=== PATIENT | male | born 1965 | race Caucasian/White ===

== ENCOUNTER 2017-12-11 09:31 | Day surgery (SDC) | payer BC, OTHER ==
[2017-12-09 09:55] VITALS: BMI 28.1
[~2017-12-11 09:31] MED LIST: LACTATED RINGERS 1,000 ML IV SCH
[2017-12-11 11:07] VITALS: RESP 16; TEMP 97.8
[2017-12-11] MEDS ORDERED: LIDOCAINE 1% 20 ML VIAL (10MG/ML) FOR IV START INTRADERMA ONE (11:08)
[2017-12-11] MEDS ORDERED: PROPOFOL 10 MG/ML 20 ML VIAL IV ONE (11:46)
--- NOTE | 2017-12-11 12:04 | P.PCN ---
Date of Procedure: 12/11/17 Procedure(s) Performed: BRIEF HISTORY: Patient is a 52-year-old pleasant male, scheduled for an elective colonoscopy as a part of screening for colorectal neoplasia. PROCEDURE PERFORMED: Colonoscopy. PREOPERATIVE DIAGNOSIS: Screening for colon cancer. IV sedation per Anesthesia. PROCEDURE: After informed consent was obtained, the patient, was brought into the endoscopy unit. IV sedation was administered by Anesthesia under continuous monitoring. Digital rectal examination was normal. Initially the Olympus CF- 160 flexible video colonoscope was then inserted in the rectum, gradually advanced into the cecum without any difficulty. Careful examination was performed as the scope was gradually being withdrawn. Ileocecal valve and the appendiceal orifice were visualized and appeared normal. Prep was fair.. Mucosa of the cecum, ascending colon, transverse colon, descending colon, sigmoid colon, and rectum appeared normal. Retroflexion was performed in the rectum and no lesions were seen. The patient tolerated the procedure well. IMPRESSION: Normal-appearing colon from rectum to cecum with no evidence of colorectal neoplasia. RECOMMENDATIONS: Findings of this examination were discussed with the patient as well as his family. He was advised to have a repeat screening colonoscopy in 10 years.
[2017-12-11 12:40] VITALS: BP 147/90; PULSE 83
== END 2017-12-11 13:33 | disposition home or self-care (01) ==
LOC: ORWHC2ENDO 09:31
PROVIDERS: ATTEND Internal Medicine Gastroenterology
DX: Z12.11 Encounter for screening for malignant neoplasm of colon (principal); Z91.040 Latex allergy status; Z91.09 Other allergy status, other than to drugs and biological substances; Z79.899 Other long term (current) drug therapy
CPT/HCPCS: G0121; J2704

== ENCOUNTER 2019-02-08 15:53 | Emergency (ER) | payer OTHER ==
[2019-02-08 16:04] VITALS: RESP 18
--- NOTE | 2019-02-08 17:02 | ED ---
Lower Extremity Injury HPI - General Chief Complaint: Extremity Injury, Lower Stated Complaint: Foot injury/pain Time Seen by Provider: 02/08/19 16:14 Source: patient Mode of arrival: ambulatory Limitations: no limitations - History of Present Illness Initial Comments: Patient is a 53-year-old male complaining of left foot pain 5 days. Patient states he was working when a large gas barrell was rolling towards him so he rolled out of the way when his foot was in a rut and it twisted. Patient states he has been having pain on the bottom of his left foot and up his Achilles since the injury. Patient states he feels like he has standing on a marble. Patient states he has pain when he is weightbearing and also on is nonweightbearing. Patient states he recently fractured his fourth toe on that same foot after approximately 3 weeks ago. Patient states that has been feeling fine until this injury. Patient denies any other previous injuries or surgeries to the left foot. Patient has no other complaints at this time. Upon arrival to ER, vital signs stable. - Related Data Home Medications Medication Instructions Recorded Confirmed Acetaminophen [Tylenol] 500 mg PO Q4-6H PRN 02/08/19 02/08/19 Fexofenadine/Pseudoephedrine 1 tab PO DAILY PRN 02/08/19 02/08/19 [Florecita-D 24 Hour Tablet] Allergies Allergy/AdvReac Type Severity Reaction Status Date / Time Latex, Natural Rubber Allergy Rash/Hives Verified 02/08/19 16:12 dust Allergy Wheezing Uncoded 02/08/19 16:04 Review of Systems ROS Statement: Those systems with pertinent positive or pertinent negative responses have been documented in the HPI. ROS Other: All systems not noted in ROS Statement are negative. Past Medical History Additional Past Medical History / Comment(s): Ankylosing spondylitis heart murmur, HX Testicular torsion. History of Any Multi-Drug Resistant Organisms: None Reported Past Surgical History: Appendectomy Additional Past Surgical History / Comment(s): Torn R sided abdominal "apron" with surgical repair. Past Anesthesia/Blood Transfusion Reactions: No Reported Reaction Past Psychological History: No Psychological Hx Reported Smoking Status: Never smoker Past Alcohol Use History: None Reported Past Drug Use History: None Reported - Past Family History Father Family Medical History: Coronary Artery Disease (CAD), Myocardial Infarction (MT) Additional Family Medical History / Comment(s): Father has schizophrenia, he had a MT at the age of 48yrs and CABG-4 vessels. Mother Family Medical History: Cancer Additional Family Medical History / Comment(s): Mother had lymphoma and breast cancer. She at the age of 40yrs. Brother(s) Family Medical History: Coronary Artery Disease (CAD) Additional Family Medical History / Comment(s): Pt has two brothers with CAD. One brother at age 49yrs had CABG-6 vessels and another brother who at age 30 yrs was diagnosed with CAD. General Exam - General Exam Comments Initial Comments: GENERAL: Well-appearing, well-nourished and in no acute distress. HEAD: Atraumatic, normocephalic. EYES: Pupils equal round and reactive to light, extraocular movements intact, sclera anicteric, conjunctiva are normal. ENT: TMs normal, nares patent, oropharynx clear without exudates. Moist mucous membranes. NECK: Normal range of motion, supple without lymphadenopathy or JVD. LUNGS: Breath sounds clear to auscultation bilaterally and equal. No wheezes rales or rhonchi. HEART: Regular rate and rhythm without murmurs, rubs or gallops. ABDOMEN: Soft, nontender, normoactive bowel sounds. No guarding, no rebound. No masses appreciated. : Deferred EXTREMITIES: Pain with palpation of the left calcaneus and left Achilles up into the left calf area. Normal range of motion, no pitting or edema. No clubbing or cyanosis. Neurovascular intact. NEUROLOGICAL: Cranial nerves II through XII grossly intact. Normal speech, normal gait. PSYCH: Normal mood, normal affect. SKIN: Warm, Dry, normal turgor, no rashes or lesions noted. Limitations: no limitations Course Vital Signs 02/08/19 02/08/19 16:01 17:43 Temperature 98.3 F 97.9 F Pulse Rate 90 80 Respiratory 18 18 Rate Blood Pressure 164/95 139/88 O2 Sat by Pulse 99 99 Oximetry Medical Decision Making - Medical Decision Making Patient is a 53-year-old male presenting with left heel and Achilles pain 5 days. On exam patient has pain with palpation of the left Achilles and plantar fascia. X-rays reveal no acute fractures dislocations. It was discussed with patient that most likely has a strain of his Achilles and plantar fascia. Discussed icing, heat, stretches. Patient will follow up with PCP as symptoms persist 1 more week. Patient is agreement this plan of care. Patient is stable for discharge. Return parameters were discussed with the patient he verbalizes understanding. Case discussed with Dr. Valente. Disposition Clinical Impression: Strain of left Achilles tendon Disposition: HOME SELF-CARE Condition: Stable Instructions (If sedation given, give patient instructions): Achilles Tendinitis (ED) Additional Instructions: Please return to the Emergency Department if symptoms worsen or any other concerns. Follow-up with PCP if symptoms persist after 2 weeks. Use ice, heat, stretching as discussed. Is patient prescribed a controlled substance at d/c from ED?: No Referrals: Reggie Mejía MD [Primary Care Provider] - 1-2 days
--- NOTE | 2019-02-08 17:16 | XR ---
PROCEDURE: XR foot complete LT - 3V DATE AND TIME: 02/08/2019 5:00 PM CLINICAL INDICATION: PHH; pain, fall TECHNIQUE: Department protocol COMPARISON: None FINDINGS: There is no fracture or malalignment. The soft tissues are unremarkable. IMPRESSION: NO ACUTE PROCESS.
[2019-02-08 17:45] VITALS: BP 139/88; PULSE 80; TEMP 97.9
== END 2019-02-08 17:43 | disposition home or self-care (01) ==
LOC: EC 15:53
DX: S86.012A Strain of left Achilles tendon, initial encounter (principal); S92.912D Unspecified fracture of left toe(s), subsequent encounter for fracture with routine healing; M45.9 Ankylosing spondylitis of unspecified sites in spine; Z91.040 Latex allergy status; Z91.048 Other nonmedicinal substance allergy status; X50.1XXA Overexertion from prolonged static or awkward postures, initial encounter; Y93.89 Activity, other specified; Y92.69 Other specified industrial and construction area as the place of occurrence of the external cause
CPT/HCPCS: 99283

== ENCOUNTER → 2020-12-03 | Outpatient (CLI) | payer OTHER | END | disposition home or self-care (01) | CPT/HCPCS: 70450 ==

== ENCOUNTER → 2021-01-18 | Outpatient (CLI) | payer OTHER ==
--- NOTE | 2021-01-18 11:25 | US ---
EXAMINATION TYPE: US carotid duplex BILAT DATE OF EXAM: 01/18/2021 COMPARISON: NONE CLINICAL HISTORY: R42 VERTIGO. EXAM MEASUREMENTS: RIGHT: Peak Systolic Velocity (PSV) cm/sec ----- Right CCA: 114.2 ----- Right ICA: 118.6 ----- Right ECA: 96.8 ICA/CCA ratio: 1.0 RIGHT: End Diastole cm/sec ----- Right CCA: 38.7 ----- Right ICA: 41.6 ----- Right ECA: 14.0 LEFT: Peak Systolic Velocity (PSV) cm/sec ----- Left CCA: 100.0 ----- Left ICA: 104.8 ----- Left ECA: 114.5 ICA/CCA ratio: 1.0 LEFT: End Diastole cm/sec ----- Left CCA: 35.4 ----- Left ICA: 40.2 ----- Left ECA: 20.8 VERTEBRALS (direction of flow): Right Vertebral: Antegrade Left Vertebral: Antegrade Rhythm: Normal Mild amount of plaque visualized bilaterally. No elevated velocities visualized, no significant steno sis IMPRESSION: No hemodynamically significant stenosis seen in either internal carotid artery. Elevat ed velocities and bilateral common carotid arteries could reflect product of uncontrolled underlying hypertension. NASCET criteria was used in interpretation of this exam? Criteria for Assigning % of Stenosis / Diameter reduction (Estimation based on the indirect measurements of the internal carotid artery velocities (ICA PSV). 1. Normal (no stenosis)=ICA PSV < 125 cm/s: ratio < 2.0: ICA EDV<40 cm/s. 2. Less than 50% stenosis=ICA PSV < 125 cm/s: ratio < 2.0: ICA EDV<40 cm/s. 3. 50 to 69% stenosis=ICA PSV of 125 to 230 cm/s: ration 2.0 ? 4.0: ICA EDV 40-100 cm/s. 4. Greater than 70% stenosis to near occlusion= ICA PSV > 230 cm/s: ratio > 4.0: ICA EDV > 100 cm/s. 5. Near occlusion= ICA PSV velocities may be low or undetectable: variable ratio and ICA EDV. 6. Total occlusion=unable to detect flow.
== END | disposition home or self-care (01) ==
LOC: RADUSWWP 10:55
PROVIDERS: ATTEND Psychiatry & Neurology Neurology
DX: I65.23 Occlusion and stenosis of bilateral carotid arteries (principal)
CPT/HCPCS: 93880